=== PATIENT | male | born 1970 | race Caucasian/White ===

== ENCOUNTER → 2024-08-07 11:12 | Outpatient (REF) | payer BC, SELFPAY | LOC: RAD 11:12 | PROVIDERS: ATTENDING PHYSICIAN Internal Medicine Rheumatology; FAMILY PHYSICIAN Internal Medicine | DX: M79.642 Pain in left hand (principal); R76.8 Other specified abnormal immunological findings in serum; Z87.39 Personal history of other diseases of the musculoskeletal system and connective tissue | CPT/HCPCS: 73130; 73630 ==

== ENCOUNTER → 2025-05-04 09:23 | Outpatient (REF) | payer BC, SELFPAY | LOC: REG 09:23 | PROVIDERS: ATTENDING PHYSICIAN Orthopaedic Surgery; FAMILY PHYSICIAN Internal Medicine | DX: Z01.818 Encounter for other preprocedural examination (principal); Z01.812 Encounter for preprocedural laboratory examination | CPT/HCPCS: 71046 ==